=== PATIENT | female | born 1980 | race Caucasian/White ===

== ENCOUNTER 2017-02-04 17:57 | Emergency (ER) | payer SELFPAY ==
[2017-02-04 18:16] VITALS: BP 133/61
[2017-02-04] MEDS ORDERED: HYDROCODONE/ACETAMINOPHEN 5-325 MG TABLET PO ONE (18:24)
[2017-02-04] MEDS ORDERED: ONDANSETRON 4 MG TAB.RAPDIS PO ONE (18:24)
--- NOTE | 2017-02-04 18:25 | ER Document Report ---
ED Medical Screen (RME) - General Chief Complaint: Vag Bleeding, +preg <12wks Stated Complaint: POSSIBLE MISCARRIAGE Notes: This 36-year-old female patient comes emergency room complaining of 2 days of vaginal bleeding cramping with clots. She reports collapsed on Saturday 2 days ago. She is A1. She reports last Saturday one week ago while in [place] she had a positive hCG. Her last menstrual period was in November 2016. I have greeted and performed a rapid initial assessment of this patient. A comprehensive ED assessment and evaluation of the patient, analysis of test results and completion of the medical decision making process will be conducted by additional ED providers. TRAVEL OUTSIDE OF THE [place] IN LAST 30 DAYS: No - Related Data Allergies/Adverse Reactions: Penicillins Allergy (Severe, Verified 08/18/15 22:54) Throat closes, swells amoxicillin Allergy (Verified 02/04/17 18:11) Past Medical History - Past Medical History Cardiac Medical History: Denies: Hx Coronary Artery Disease, Hx Heart Attack, Hx Hypertension Pulmonary Medical History: Denies: Hx Asthma, Hx Bronchitis, Hx COPD, Hx Pneumonia Neurological Medical History: Denies: Hx Cerebrovascular Accident, Hx Seizures Renal/ Medical History: Denies: Hx Peritoneal Dialysis Musculoskeltal Medical History: Denies Hx Arthritis, Reports Hx Musculoskeletal Deformity, Reports Hx Musculoskeletal Trauma Past Surgical History: Reports: Hx Appendectomy, Hx Breast Surgery - augmentation. Denies: Hx Pacemaker - Immunizations Immunizations up to date: Yes Hx Diphtheria, Pertussis, Tetanus Vaccination: Yes Physical Exam - Vital signs Vitals: Temp Pulse Resp BP Pulse Ox 97.9 F 92 16 133/61 H 98 02/04/17 18:11 02/04/17 18:11 02/04/17 18:11 02/04/17 18:11 02/04/17 18:11 Course - Vital Signs Vital signs: Temp Pulse Resp BP Pulse Ox 97.9 F 92 16 133/61 H 98 02/04/17 18:11 02/04/17 18:11 02/04/17 18:11 02/04/17 18:11 02/04/17 18:11
[2017-02-04 19:08] LABS: ABSOLUTE BASOPHILS # (AUTO) 0.1 10^3/uL (0.0-0.2); ABSOLUTE EOSINOPHILS # (AUTO) 0.6 10^3/uL (0.0-0.6); ABSOLUTE LYMPHOCYTES (AUTO) 2.8 10^3/uL (0.5-4.7); ABSOLUTE MONOCYTES (AUTO) 0.5 10^3/uL (0.1-1.4); ABSOLUTE NEUT (AUTO) 4.7 10^3/uL (1.7-8.2); EOSINOPHILS % (AUTO) 7.3 % (0-6); HEMATOCRIT 44.3 % (36.0-47.0); HGB HCT DIFFERENCE 0.7; MEAN CORPUSCULAR HEMOGLOBIN 32.1 pg (27.0-33.4); MEAN CORPUSCULAR HGB CONC 33.9 g/dL (32.0-36.0); MEAN CORPUSCULAR VOLUME 95 fl (80-97); MONOCYTES % (AUTO) 5.3 % (3-13); RED BLOOD COUNT 4.67 10^6/uL (3.72-5.28); RED CELL DISTRIBUTION WIDTH 15.7 % (11.5-14.0); SEGMENTED NEUTROPHILS % (AUTO) 54.4 % (42-78); WHITE BLOOD COUNT 8.7 10^3/uL (4.0-10.5)
[2017-02-04 19:25] LABS: ALANINE AMINOTRANSFERASE 23 U/L (9-52); ALBUMIN 3.8 g/dL (3.5-5.0); ALKALINE PHOSPHATASE 41 U/L (38-126); ANION GAP 10 (5-19); ASPARTATE AMINO TRANSFERASE 23 U/L (14-36); BILIRUBIN,DIRECT 0.1 mg/dL (0.0-0.4); BILIRUBIN,TOTAL 0.6 mg/dL (0.2-1.3); BLOOD UREA NITROGEN 11 mg/dL (7-20); CALCIUM 9.1 mg/dL (8.4-10.2); CARBON DIOXIDE 29 mmol/L (22-30); CHLORIDE 103 mmol/L (98-107); CREATININE RESULT 0.72 mg/dL (0.52-1.25); GLUCOSE 73 mg/dL (75-110); POTASSIUM 4.6 mmol/L (3.6-5.0); SODIUM 142.1 mmol/L (137-145); TOTAL PROTEIN 6.3 g/dL (6.3-8.2)
== END 2017-02-04 20:22 | disposition left against medical advice (07) ==
LOC: ER 17:57
DX: O20.9 Hemorrhage in early pregnancy, unspecified (principal); Z88.0 Allergy status to penicillin
CPT/HCPCS: 99281; 36415; 84702; 85025; 80053; 76817; S0119

== ENCOUNTER 2017-03-23 18:36 | Emergency (ER) | payer SELFPAY ==
[2017-03-23 19:11] VITALS: BP 97/55
[2017-03-23] MEDS ORDERED: NORMAL SALINE 1000 ML 1,000 ML IV ONE (19:46)
--- NOTE | 2017-03-23 19:48 | ER Document Report ---
ED Medical Screen (RME) - General Chief Complaint: Abdominal Pain Stated Complaint: ABDOMINAL AND BACK PAIN Time Seen by Provider: 03/23/17 19:42 Mode of Arrival: Wheelchair Information source: Patient TRAVEL OUTSIDE OF THE [place] IN LAST 30 DAYS: No - HPI Patient complains to provider of: L LBP with hematuria Onset: This afternoon - pt. states she started having Low back pain with hematuria ealrier this am. No h/o kidney stone. Given toradol and zofran by EMS en route - Related Data Allergies/Adverse Reactions: Penicillins Allergy (Severe, Verified 03/23/17 19:11) Throat closes, swells amoxicillin Allergy (Verified 03/23/17 19:11) Past Medical History - Social History Chew tobacco use (# tins/day): No Frequency of alcohol use: None Drug Abuse: None - Past Medical History Cardiac Medical History: Denies: Hx Coronary Artery Disease, Hx Heart Attack, Hx Hypertension Pulmonary Medical History: Denies: Hx Asthma, Hx Bronchitis, Hx COPD, Hx Pneumonia Neurological Medical History: Denies: Hx Cerebrovascular Accident, Hx Seizures Renal/ Medical History: Denies: Hx Peritoneal Dialysis Musculoskeltal Medical History: Denies Hx Arthritis, Reports Hx Musculoskeletal Deformity, Reports Hx Musculoskeletal Trauma Past Surgical History: Reports: Hx Appendectomy, Hx Breast Surgery - augmentation. Denies: Hx Pacemaker - Immunizations Immunizations up to date: Yes Hx Diphtheria, Pertussis, Tetanus Vaccination: Yes Physical Exam - Vital signs Vitals: Temp Pulse Resp BP Pulse Ox 98.0 F 90 18 97/55 L 98 03/23/17 18:52 03/23/17 18:52 03/23/17 18:52 03/23/17 18:52 03/23/17 18:52 Course - Vital Signs Vital signs: Temp Pulse Resp BP Pulse Ox 98.0 F 90 18 97/55 L 98 03/23/17 18:52 03/23/17 18:52 03/23/17 18:52 03/23/17 18:52 03/23/17 18:52
[2017-03-23 20:16] LABS: ABSOLUTE BASOPHILS # (AUTO) 0.1 10^3/uL (0.0-0.2); ABSOLUTE EOSINOPHILS # (AUTO) 0.8 10^3/uL (0.0-0.6); ABSOLUTE LYMPHOCYTES (AUTO) 2.6 10^3/uL (0.5-4.7); ABSOLUTE MONOCYTES (AUTO) 0.6 10^3/uL (0.1-1.4); ABSOLUTE NEUT (AUTO) 7.9 10^3/uL (1.7-8.2); BASOPHILS % (AUTO) 0.8 % (0-2); EOSINOPHILS % (AUTO) 6.3 % (0-6); HEMATOCRIT 41.5 % (36.0-47.0); HEMOGLOBIN 13.7 g/dL (12.0-15.5); HGB HCT DIFFERENCE -0.4; LYMPHOCYTES % (AUTO) 21.5 % (13-45); MEAN CORPUSCULAR HEMOGLOBIN 31.3 pg (27.0-33.4); MEAN CORPUSCULAR HGB CONC 32.9 g/dL (32.0-36.0); MEAN CORPUSCULAR VOLUME 95 fl (80-97); MONOCYTES % (AUTO) 5.3 % (3-13); RED BLOOD COUNT 4.36 10^6/uL (3.72-5.28); RED CELL DISTRIBUTION WIDTH 15.2 % (11.5-14.0); SEGMENTED NEUTROPHILS % (AUTO) 66.1 % (42-78)
[2017-03-23 20:36] LABS: ALANINE AMINOTRANSFERASE 19 U/L (9-52); ALBUMIN 3.7 g/dL (3.5-5.0); ALKALINE PHOSPHATASE 45 U/L (38-126); ANION GAP 8 (5-19); ASPARTATE AMINO TRANSFERASE 19 U/L (14-36); BILIRUBIN,DIRECT 0.3 mg/dL (0.0-0.4); BILIRUBIN,TOTAL 0.4 mg/dL (0.2-1.3); BLOOD UREA NITROGEN 15 mg/dL (7-20); CALCIUM 9.1 mg/dL (8.4-10.2); CARBON DIOXIDE 30 mmol/L (22-30); CHLORIDE 104 mmol/L (98-107); CREATININE RESULT 0.87 mg/dL (0.52-1.25); GLUCOSE 89 mg/dL (75-110); SODIUM 141.9 mmol/L (137-145); TOTAL PROTEIN 6.6 g/dL (6.3-8.2)
== END 2017-03-23 20:32 | disposition left against medical advice (07) ==
LOC: ER 18:36
DX: Z53.9 Procedure and treatment not carried out, unspecified reason (principal); R10.9 Unspecified abdominal pain; M54.9 Dorsalgia, unspecified; R31.9 Hematuria, unspecified
CPT/HCPCS: 99281; 36415; 85025; 80053; J7030

== ENCOUNTER 2017-04-13 03:40 | Emergency (ER) | payer SELFPAY ==
[2017-04-13] MEDS ORDERED: NORMAL SALINE 1000 ML 1,000 ML IV ONE ×2 (04:34→06:26)
[2017-04-13] MEDS ORDERED: ONDANSETRON HCL INJ/PF 4 MG/2 ML SDV IV ONE (04:34)
[2017-04-13 04:47] LABS: ABSOLUTE BASOPHILS # (AUTO) 0.1 10^3/uL (0.0-0.2); ABSOLUTE EOSINOPHILS # (AUTO) 1.2 10^3/uL (0.0-0.6); ABSOLUTE LYMPHOCYTES (AUTO) 5.3 10^3/uL (0.5-4.7); ABSOLUTE NEUT (AUTO) 3.4 10^3/uL (1.7-8.2); BASOPHILS % (AUTO) 0.8 % (0-2); EOSINOPHILS % (AUTO) 10.8 % (0-6); HEMATOCRIT 44.9 % (36.0-47.0); HEMOGLOBIN 15.1 g/dL (12.0-15.5); HGB HCT DIFFERENCE 0.4; LYMPHOCYTES % (AUTO) 48.9 % (13-45); MEAN CORPUSCULAR HEMOGLOBIN 32.1 pg (27.0-33.4); MEAN CORPUSCULAR HGB CONC 33.7 g/dL (32.0-36.0); MEAN CORPUSCULAR VOLUME 95 fl (80-97); MONOCYTES % (AUTO) 8.7 % (3-13); RED BLOOD COUNT 4.72 10^6/uL (3.72-5.28); RED CELL DISTRIBUTION WIDTH 14.5 % (11.5-14.0); SEGMENTED NEUTROPHILS % (AUTO) 30.8 % (42-78); WHITE BLOOD COUNT 10.9 10^3/uL (4.0-10.5)
[2017-04-13 05:55] LABS: APPEARANCE,URINE SLIGHTLY-CLOUDY; BILIRUBIN,URINE NEGATIVE (NEGATIVE); GLUCOSE, URINE NEGATIVE (NEGATIVE); KETONES,URINE NEGATIVE (NEGATIVE); LEUKOCYTE ESTERASE,URINE MODERATE (NEGATIVE); NITRITE,URINE POSITIVE (NEGATIVE); PROTEIN,URINE NEGATIVE (NEGATIVE); URINE SPECIFIC GRAVITY 1.009; UROBILINOGEN,URINE NEGATIVE mg/dL (<2.0)
[2017-04-13 06:00] LABS: RBC,URINE 0-1 /HPF; WHITE BLOOD CELL CASTS, URINE 0-1 /LPF
--- NOTE | 2017-04-13 06:00 | ER Document Report ---
ED General - General Chief Complaint: Flank Pain Stated Complaint: FLANK PAIN Time Seen by Provider: 04/13/17 04:10 TRAVEL OUTSIDE OF THE [place] IN LAST 30 DAYS: No - HPI Notes: Patient comes to the office c/o b/l flank pain, dysuria, feeling of incomplete void, and lower abd pain intermittently for 2 weeks. The latest bout started up in the last 1-2 days. Pt states that she did feel feverish yesterday and had 2 episodes of n/v today. Pt states that she believes she did see a little blood once in her urine. Pt states she was told a few weeks ago that she had a kidney stone on the left side. Pt was also told that she cannot have MRI's as she has piercings to her lower back. Pt states that the pain radiates from the flank to her groin b/l. Pt has a h/o anxiety and takes xanax. Pt reports having a couple shots and drinks this evening as well. Denies any current fever , URI, sore throat, headache, cp, palp, syncope, cough, wheeze, sob, dyspnea, diarrhea/constipation, vaginal discharge/odor, or rash. Denies IV drug use. No significant PMH otherwise. Pt states that she is in a monogamous relationship with another female partner. - Related Data Allergies/Adverse Reactions: Penicillins Allergy (Severe, Verified 03/26/17 09:40) Throat closes, swells amoxicillin Allergy (Verified 03/26/17 09:40) Past Medical History - Social History Smoking Status: Current Every Day Smoker Family History: Reviewed & Not Pertinent Patient has suicidal ideation: No Patient has homicidal ideation: No - Past Medical History Cardiac Medical History: Denies: Hx Coronary Artery Disease, Hx Heart Attack, Hx Hypertension Pulmonary Medical History: Denies: Hx Asthma, Hx Bronchitis, Hx COPD, Hx Pneumonia Neurological Medical History: Denies: Hx Cerebrovascular Accident, Hx Seizures Renal/ Medical History: Denies: Hx Peritoneal Dialysis Musculoskeltal Medical History: Denies Hx Arthritis, Reports Hx Musculoskeletal Deformity, Reports Hx Musculoskeletal Trauma Past Surgical History: Reports: Hx Appendectomy, Hx Breast Surgery - augmentation. Denies: Hx Pacemaker - Immunizations Immunizations up to date: Yes Hx Diphtheria, Pertussis, Tetanus Vaccination: Yes Review of Systems - Review of Systems Notes: REVIEW OF SYSTEMS: CONSTITUTIONAL : see hpi. Denies recent illness. EENT: Denies eye, ear, throat, or mouth pain or symptoms. Denies nasal or sinus congestion or discharge. Denies throat, tongue, or mouth swelling or difficulty swallowing. CARDIOVASCULAR: Denies chest pain. Denies palpitations or racing or irregular heart beat. Denies ankle edema. RESPIRATORY: Denies cough, cold, or chest congestion. Denies shortness of breath, difficulty breathing, or wheezing. GASTROINTESTINAL: see hpi GENITOURINARY: see hpi FEMALE GENITOURINARY: Denies vaginal bleeding, heavy or abnormal periods, irregular periods. Denies vaginal discharge or odor. MUSCULOSKELETAL: Denies neck pain or stiffness. Denies joint pain or swelling. See hpi. SKIN: Denies rash, lesions or sores. NEUROLOGICAL: Denies confusion or altered mental status. Denies passing out or loss of consciousness. Denies dizziness or lightheadedness. Denies headache. Denies weakness or paralysis or loss of use of either side. Denies problems with gait or speech. Denies sensory loss, numbness, or tingling. Denies seizures. PSYCHIATRIC: see hpi ALL OTHER SYSTEMS REVIEWED AND NEGATIVE. Dictation was performed using [employer] voice recognition software Physical Exam - Vital signs Vitals: Temp Pulse Resp BP Pulse Ox 97.9 F 84 20 100/69 98 04/13/17 03:55 04/13/17 03:55 04/13/17 03:55 04/13/17 03:55 04/13/17 03:55 Notes: PHYSICAL EXAMINATION: GENERAL: Well-appearing, well-nourished. Pt was sleeping when I went into the room and would not wake up to normal voice and light touch to the arm. PCT came into the room as well and did a light sternal rub which immediately woke her up at which point she began to cry and writhe in pain from her lower abd/ flank. HEAD: Atraumatic, normocephalic. EYES: Pupils equal round and reactive to light, extraocular movements intact, sclera anicteric, conjunctiva are normal. ENT: Nares patent and without discharge. oropharynx clear without exudates. No tonsilar hypertrophy or erythema. Moist mucous membranes. No sinus tenderness. NECK: Normal range of motion, supple without lymphadenopathy. No rigidity/ meningismus. LUNGS: Breath sounds clear to auscultation bilaterally and equal. No wheezes rales or rhonchi. HEART: Regular rate and rhythm without murmurs, rubs, gallops. ABDOMEN: Soft, non-distended. No rigidity. + tenderness to the generalized abd (> lower abd b/l). Mild guarding to lower palpation. No ecchymosis, swelling, ascites, abrasion/laceration noted. + CVAT b/l. Musculoskeletal: FROM to passive/active to LE's b/l. Strength 5+/5. SLR neg b/ l. Extremities: No cyanosis, clubbing, or edema b/l. Peripheral pulses 2+. Capillary refill less than 3 seconds. NEUROLOGICAL: Cranial nerves grossly intact. Normal speech. Normal sensory, motor exams. Reflexes 2+ LE's. PSYCH: emotional, normal affect otherwise. SKIN: Warm, Dry, normal turgor, no rashes or lesions noted. Course - Re-evaluation Re-evalutation: 04/13/17 06:41 Patient is an afebrile, well-hydrated, 37yo female who presents with UTI/ Pyelonephritis based on work up today. Mild leukocytosis. Urinalysis +, UC pending. CT scan was overall unremarkable for radiologist impression. Clinically, the patient fits a pyelo dx and the rt kidney on scan appears to be larger than the left from personal view. Fluids, zofran given today. Levaquin 750mg given IM (pt severely allergic to PCN's). Vitals are stable. Pt's BP is low, but that is her normal over the course of years. Pt is self pay. We will discharge her on Cipro 500mg PO BID x7 days, phenergan, and morphine for some assistance with pain. Pt tolerated PO intake prior to discharge. Recheck with her PCM in 2-3 days for a recheck, consider consult with Nephrology as well ( info provided). Return to the ED with any worsening symptoms as reviewed. Pt in agreement. - Vital Signs Vital signs: Temp Pulse Resp BP Pulse Ox 97.9 F 84 27 H 91/64 L 98 04/13/17 03:55 04/13/17 03:55 04/13/17 06:02 04/13/17 06:02 04/13/17 06:02 - Laboratory Result Diagrams: 04/13/17 04:14 04/13/17 05:48 Laboratory results interpreted by me: 04/13/17 04/13/17 04:14 04:55 WBC 10.9 H RDW 14.5 H Seg Neutrophils % 30.8 L Lymphocytes % 48.9 H Eosinophils % 10.8 H Absolute Lymphocytes 5.3 H Absolute Eosinophils 1.2 H Urine Blood SMALL H Urine Nitrite POSITIVE H Ur Leukocyte Esterase MODERATE H Discharge - Discharge Clinical Impression: Pyelonephritis UTI (urinary tract infection) Qualifiers: Urinary tract infection type: site unspecified Hematuria presence: with hematuria Qualified Code(s): N39.0 - Urinary tract infection, site not specified Condition: Stable Disposition: HOME, SELF-CARE Instructions: Acetaminophen, Antibiotic Therapy ([facility]), Antinausea Medication ( [facility]), Ciprofloxacin ([facility]), Oral Narcotic Medication ([facility]), Pyelonephritis ([facility]) , Urinary Tract Infection ([facility]) Additional Instructions: Push fluids (i.e. water, cranberry juice) Proper hygenic technique Keep the skin clean Tylenol/ibuprofen as needed May use over the counter AZO for burning with urination Take medications as directed F/u with your PCM in 2-3 days for a recheck Consider consult with a Forensic Identification Specialist for ongoing/worsening symptoms. Return to the ED with any development of fever, worsening pain, blood in the urine, worsening flank pain, abdominal pain, n/v, Chest Pain, shortness of breath, or trouble breathing. Prescriptions: Ciprofloxacin HCl [Cipro 500 mg Tablet] 500 mg PO BID #14 tablet Morphine Sulfate [Morphine Ir 15 Mg Tablet] 15 mg PO QID PRN #10 tablet PRN Reason: Promethazine HCl [Phenergan 25 mg Tablet] 1 tab PO Q6H PRN #15 tablet PRN Reason: Referrals: LUISANA ABAD MD [ACTIVE STAFF] - Follow up as needed
[2017-04-13 06:01] LABS: BACTERIA,URINE 3+ /HPF
[2017-04-13 06:15] VITALS: BP 91/64
[2017-04-13 06:16] LABS: ALANINE AMINOTRANSFERASE 23 U/L (9-52); ALBUMIN 4.5 g/dL (3.5-5.0); ALKALINE PHOSPHATASE 39 U/L (38-126); ANION GAP 15 (5-19); ASPARTATE AMINO TRANSFERASE 21 U/L (14-36); BILIRUBIN,DIRECT 0.3 mg/dL (0.0-0.4); BILIRUBIN,TOTAL 0.6 mg/dL (0.2-1.3); BLOOD UREA NITROGEN 17 mg/dL (7-20); CALCIUM 9.2 mg/dL (8.4-10.2); CARBON DIOXIDE 22 mmol/L (22-30); CHLORIDE 102 mmol/L (98-107); CREATININE RESULT 0.94 mg/dL (0.52-1.25); GLUCOSE 86 mg/dL (75-110); LIPASE 94.4 U/L (23-300); POTASSIUM 4.1 mmol/L (3.6-5.0); SODIUM 139.3 mmol/L (137-145); TOTAL PROTEIN 7.8 g/dL (6.3-8.2)
[2017-04-13] MEDS ORDERED: LEVOFLOXACIN 750 MG TABLET PO ONE (06:21)
--- NOTE | 2017-04-13 06:33 | RADIOLOGY REPORT (SQ) ---
EXAM DESCRIPTION: CT LTD RENAL STONE PROTOCOL ON COMPLETED DATE/TIME: 04/13/2017 6:22 am REASON FOR STUDY: Flank and abdominal pain COMPARISON: None. TECHNIQUE: CT scan of the abdomen and pelvis performed without intravenous or oral contrast. Images reviewed with lung, soft tissue, and bone windows. Reconstructed coronal and sagittal MPR images revi ewed. All images stored on PACS. All CT scanners at this facility use dose modulation, iterative reconstruction, and/or weight based d osing when appropriate to reduce radiation dose to as low as reasonably achievable (ALARA). [facility]: Dose Right [facility]: CareDose [facility]: Dose Right [facility]: Teradose 4D [facility]: Smart Audiodraft RADIATION DOSE: Up-to-date CT equipment and radiation dose reduction techniques were employed. CTDIv ol: 4.8 mGy. DLP: 241 mGy-cm.mGy. LIMITATIONS: None. FINDINGS: LOWER CHEST: No significant findings. No nodules or infiltrates. Small basilar atelectasi s or scar, dependent. NON-CONTRASTED LIVER, SPLEEN, ADRENALS: Evaluation limited by lack of IV contrast. No identified sign ificant masses. PANCREAS: No masses. No peripancreatic inflammatory changes. GALLBLADDER: No identified stones by CT criteria. No inflammatory changes to suggest cholecystitis. RIGHT KIDNEY AND URETER: No suspicious masses. Assessment limited by lack of IV contrast. No signif icant calcifications. No hydronephrosis or hydroureter. LEFT KIDNEY AND URETER: No suspicious masses. Assessment limited by lack of IV contrast. No signifi cant calcifications. No hydronephrosis or hydroureter. AORTA AND RETROPERITONEUM: No aneurysm. No retroperitoneal masses or adenopathy. Atherosclerosis. BOWEL AND PERITONEAL CAVITY: No obvious masses or inflammatory changes. No free fluid. APPENDIX: Normal. PELVIS, BLADDER, AND ABDOMINAL WALL:No abnormal masses. No free fluid. Bladder normal. BONES: No significant findings. OTHER: No other significant finding. IMPRESSION: NO SIGNIFICANT OR ACUTE PROCESS IN THE ABDOMEN OR PELVIS. TECHNICAL DOCUMENTATION: JOB ID: [id number] Quality ID # [id number]: Final reports with documentation of one or more dose reduction techniques (e.g., Au tomated exposure control, adjustment of the mA and/or kV according to patient size, use of iterative reconstruction technique) 2010 [employer]- All Rights Reserved
== END 2017-04-13 07:20 | disposition home or self-care (01) ==
LOC: ER 03:40
DX: N12 Tubulo-interstitial nephritis, not specified as acute or chronic (principal); N39.0 Urinary tract infection, site not specified; R10.9 Unspecified abdominal pain; R30.0 Dysuria; R10.30 Lower abdominal pain, unspecified; F41.9 Anxiety disorder, unspecified; Z79.899 Other long term (current) drug therapy; F17.200 Nicotine dependence, unspecified, uncomplicated
CPT/HCPCS: 99284; 96361; 96374; 36415; 87086; 83690; 85025; 81025; 87088; 80053; 81001; 87186; 76380; J2405; J7030

== ENCOUNTER 2017-05-31 04:03 | Emergency (ER) | payer SELFPAY ==
--- NOTE | 2017-05-31 05:18 | ER Document Report ---
HPI - HPI Pain Level: 3 Notes: Patient is a 37-year-old female who presents the ED complaining of abnormal uterine bleeding since April 20. Patient states that she has cramping intermittently as well as occasional low back pain. Patient states that she has a history of urinary infections, kidney infections, and was diagnosed with abnormal uterine bleeding in September 2016. Patient states that since April 20 she has had 2 normal periods and in the last few days she started having light spotting. Patient states that over the last month she has been sexually active with both a male and female partner, but currently it is a female partner. Patient states that right now she has left suprapubic pain/cramping with occasional light spotting. Patient states that she is still eating and drinking without any difficulties. She denies any urinary symptoms. Patient denies any other vaginal discharge or foul odor. Denies any headache, fever, URI, sore throat, chest pain, palpitations, syncope, cough, shortness of breath , wheeze, dyspnea, nausea/vomiting/diarrhea, urinary retention, dysuria, hematuria, loss of control of bowel or bladder, numbness/tingling, saddle anesthesia, muscle paralysis/weakness, or rash. - ROS Notes: REVIEW OF SYSTEMS: CONSTITUTIONAL : Denies fever, chills, or sweats. Denies recent illness. EENT: Denies eye, ear, throat, or mouth pain or symptoms. Denies nasal or sinus congestion or discharge. Denies throat, tongue, or mouth swelling or difficulty swallowing. CARDIOVASCULAR: Denies chest pain. Denies palpitations or racing or irregular heart beat. Denies ankle edema. RESPIRATORY: Denies cough, cold, or chest congestion. Denies shortness of breath, difficulty breathing, or wheezing. GASTROINTESTINAL: see hpi GENITOURINARY: Denies difficulty urinating, painful urination, burning, frequency, blood in urine, or discharge. FEMALE GENITOURINARY: see hpi MUSCULOSKELETAL: Denies back or neck pain or stiffness. Denies joint pain or swelling. SKIN: Denies rash, lesions or sores. NEUROLOGICAL: Denies confusion or altered mental status. Denies passing out or loss of consciousness. Denies dizziness or lightheadedness. Denies headache. Denies weakness or paralysis or loss of use of either side. Denies problems with gait or speech. Denies sensory loss, numbness, or tingling. ALL OTHER SYSTEMS REVIEWED AND NEGATIVE. Dictation was performed using [email or web address] voice recognition software - REPRODUCTIVE Reproductive: DENIES: : - DERM Skin Color: Normal Past Medical History - Social History Smoking Status: Current Every Day Smoker Frequency of alcohol use: Rare Drug Abuse: None Family History: Reviewed & Not Pertinent Patient has suicidal ideation: No Patient has homicidal ideation: No - Past Medical History Cardiac Medical History: Denies: Hx Coronary Artery Disease, Hx Heart Attack, Hx Hypertension Pulmonary Medical History: Denies: Hx Asthma, Hx Bronchitis, Hx COPD, Hx Pneumonia Neurological Medical History: Denies: Hx Cerebrovascular Accident, Hx Seizures Renal/ Medical History: Denies: Hx Peritoneal Dialysis Musculoskeltal Medical History: Denies Hx Arthritis, Reports Hx Musculoskeletal Deformity, Reports Hx Musculoskeletal Trauma Past Surgical History: Reports: Hx Appendectomy, Hx Breast Surgery - augmentation. Denies: Hx Pacemaker - Immunizations Immunizations up to date: Yes Hx Diphtheria, Pertussis, Tetanus Vaccination: Yes Vertical Provider Document - CONSTITUTIONAL Agree With Documented VS: Yes Notes: PHYSICAL EXAMINATION: GENERAL: Well-appearing, well-nourished and in no acute distress. NECK: Normal range of motion, supple without lymphadenopathy LUNGS: Breath sounds clear to auscultation bilaterally and equal. No wheezes rales or rhonchi. HEART: Regular rate and rhythm without murmurs ABDOMEN: Soft, nondistended abdomen. No guarding, no rebound. No masses appreciated. Normal bowel sounds present. CVA tenderness negative bilaterally. + mild tenderness to the left adnexal area/LLQ. Female : No inguinal adenopathy. External genitalia without erythema, lesions , or masses. Vaginal mucosa pink. Cervix parous, pink, and with a white discharge. No blood discharge noted. Uterus is smooth. + left mild adnexal tenderness. Musculoskeletal: LE's b/l: FROM to passive/active. Strength 5+/5. SLR neg. Extremities: No cyanosis/clubbing/edema b/l. Peripheral pulses 2+. Capillary refill less than 3 seconds. NEUROLOGICAL: Normal speech, normal gait. Normal sensory, motor exams PSYCH: Normal mood, normal affect. SKIN: Warm, Dry, normal turgor, no rashes or lesions noted. - INFECTION CONTROL TRAVEL OUTSIDE OF THE [place] IN LAST 30 DAYS: No - RESPIRATORY O2 Sat by Pulse Oximetry: 98 Course - Re-evaluation Re-evalutation: 05/31/17 06:40 Patient is an afebrile, well-hydrated, 37-year-old female with trichomonas infection and BV on wet mount. GC/Chlam tests are pending. UA most likely contaminate with UC pending. Urine HCG negative. TV US is unremarkable for any acute pathology. Vitals are stable. PE otherwise unremarkable this time. I will send her home with a Rx for Metronidazole which will cover both BV and Trich. Reviewed severe PCN allergy with Dr. Diez. Routinely, we would cover with zithromax and rocephin, but pt has the severe PCN allergy. In lieu of that , we will send her home with Doxy 100mg PO BID x7 days and wait for the GC/ chlam results. If they come back positive then we will track her down to have her get treated. Pt is to call the ED in 4 hours for her results which she is agreeable to. Risks/benefits understood. Abstain from sexual contact until treatment completed. Have partner(s) treated as well. Conservative measures otherwise for symptoms. Contact the [facility] to set up a SCHOOL ADJUSTMENT COUNSELOR appointment for ongoing management, review of possible abnormal uterine bleeding. Get eval' d at the health department this week. Recheck with PCM in 2-3 days. Return to the ED with any worsening/concerning symptoms otherwise as reviewed in discharge. Patient is in agreement. Low suspicion for any acute appendicitis, bowel obstruction, acute cholecystitis, perforated diverticulitis, incarcerated hernia, pancreatitis, pelvic inflammatory disease, perforated ulcer, ectopic , tubo-ovarian abscess. Patient is aware that condition change from initial presentation and she needs to monitor symptoms closely and seek medical attention if any acute changes in symptoms. - Vital Signs Vital signs: Temp Pulse Resp BP Pulse Ox 97.8 F 71 18 119/90 H 98 05/31/17 04:14 05/31/17 04:14 05/31/17 04:14 05/31/17 04:14 05/31/17 04:14 Procedures - Pelvic Exam Pelvic exam Time completed: 05:35 Cultures obtained: Yes Wet prep obtained: Yes Herpes culture obtained: - Pressure Bimanual exam performed: Yes - no CMT Witnessed by: female PCT Notes: 05/31/17 05:19 see exam Discharge - Discharge Clinical Impression: Trichomonas infection, Bacterial vaginosis Condition: Stable Disposition: HOME, SELF-CARE Instructions: Metronidazole ([facility]), Trichomonas Infection ([facility]), Vaginosis, Bacterial ([facility]), Doxycycline ([facility]) Additional Instructions: Maintain fluids Your GC/chlamydia test is pending and he will be notified if it is positive, however, you are already treated prophylactically in the ED today. Take medication as directed for full dose Have sexual partners treated Tylenol/ibuprofen as needed Schedule an appointment with the women's clinic to set up a SCHOOL ADJUSTMENT COUNSELOR consult for further evaluation Recheck with PCM in 2-3 days Return to the ED with any worsening symptoms and/or development of fever, headache, chest pain, palpitations, syncope, shortness of breath, trouble breathing, abdominal pain, n/v/d, blood in stool/urine, or other worsening symptoms that are concerning to you. Prescriptions: Doxycycline Hyclate 100 mg PO BID #14 capsule Metronidazole [Flagyl 500 mg Tablet] 500 mg PO BID #14 tablet Forms: Elevated Blood Pressure, Smoking Cessation Education [facility]errals[facility] - Follow up in 3-5 days [facility] [NO LOCAL MD] - Follow up in 3-5 days
[2017-05-31 05:42] LABS: APPEARANCE,URINE CLOUDY; BILIRUBIN,URINE NEGATIVE (NEGATIVE); GLUCOSE, URINE NEGATIVE (NEGATIVE); KETONES,URINE TRACE mg/dL (NEGATIVE); LEUKOCYTE ESTERASE,URINE TRACE (NEGATIVE); NITRITE,URINE NEGATIVE (NEGATIVE); PROTEIN,URINE 30 mg/dL (NEGATIVE); URINE SPECIFIC GRAVITY 1.036; UROBILINOGEN,URINE NEGATIVE mg/dL (<2.0)
--- NOTE | 2017-05-31 06:33 | RADIOLOGY REPORT (SQ) ---
EXAM DESCRIPTION: U/S NON OB PEL TV W/DOPPLER COMPLETED DATE/TIME: 05/31/2017 6:23 am REASON FOR STUDY: left adnexal pain/tenderness COMPARISON: None. TECHNIQUE: Dynamic and static grayscale images acquired of the pelvis via transvaginal approach and recorded on PACS. Additional selected color Doppler and spectral images recorded. LIMITATIONS: None. FINDINGS: UTERUS: Contour normal. No mass. ENDOMETRIAL STRIPE: No focal or generalized thickening. No masses. CERVIX: No nabothian cysts. RIGHT OVARY: No abnormal masses. RIGHT OVARY DOPPLER: Normal arterial vascular flow without evidence for torsion. LEFT OVARY: No abnormal masses. LEFT OVARY DOPPLER: Normal arterial vascular flow without evidence for torsion. FREE FLUID: None noted. OTHER: No other significant finding. MEASUREMENTS: UTERUS: 10 x 5.6 x 4.9 cm. ENDOMETRIAL STRIPE: 0.5 cm thick. RIGHT OVARY: 3.8 cm. LEFT OVARY: 3.6 cm. IMPRESSION: NORMAL TRANSVAGINAL PELVIC ULTRASOUND. TECHNICAL DOCUMENTATION: JOB ID: [id number] [employer]- All Rights Reserved
[2017-05-31 06:53] VITALS: BP 126/81
[2017-05-31 07:24] LABS: CHLAM PCR NOT DETECTED (NOT DETECT)
== END 2017-05-31 06:55 | disposition home or self-care (01) ==
LOC: ER 04:03
DX: A59.9 Trichomoniasis, unspecified (principal); N76.0 Acute vaginitis; B96.89 Other specified bacterial agents as the cause of diseases classified elsewhere; M54.5 Low back pain; F17.200 Nicotine dependence, unspecified, uncomplicated
CPT/HCPCS: 76830; 81001; 81025; 87086; 87210; 87491; 87591; 93976; 99284

== ENCOUNTER 2017-06-04 16:02 | Emergency (ER) | payer SELFPAY ==
[2017-06-04] MEDS ORDERED: BUPIVACAINE HCL 0.5 % INJ/PF 30 ML SDV INJ ONE (16:47)
[2017-06-04] MEDS ORDERED: OXYCODONE-ACETAMINOPHEN 5-325 MG TABLET PO ONE (17:24)
--- NOTE | 2017-06-04 17:29 | ER Document Report ---
HPI - HPI Patient complains to provider of: toothache Onset: This morning Onset/Duration: Sudden Quality of pain: Throbbing Severity: Severe Pain Level: 5 Context: Patient states she was eating today and bit down on something and broke her right upper tooth. Complains of pain. Associated Symptoms: None Exacerbated by: Food Relieved by: Denies Similar symptoms previously: Yes Recently seen / treated by doctor: No - ROS ROS below otherwise negative: Yes Systems Reviewed and Negative: Yes All other systems reviewed and negative - CONSTITUTIONAL Constitutional: DENIES: Fever - EENT EENT: DENIES: Congestion - NEURO Neurology: DENIES: Headache - CARDIOVASCULAR Cardiovascular: DENIES: Chest pain - RESPIRATORY Respiratory: DENIES: Trouble Breathing - GASTROINTESTINAL Gastrointestinal: DENIES: Abdominal Pain - REPRODUCTIVE Reproductive: DENIES: : - MUSCULOSKELETAL Musculoskeletal: DENIES: Extremity pain - DERM Skin Color: Normal Past Medical History - General Information source: Patient - Social History Smoking Status: Current Every Day Smoker Cigarette use (# per day): Yes Frequency of alcohol use: None Drug Abuse: None Lives with: Family Family History: Reviewed & Not Pertinent Patient has suicidal ideation: No Patient has homicidal ideation: No Renal/ Medical History: Reports: Hx Pelvic Inflammatory Disease Musculoskeltal Medical History: Reports Hx Musculoskeletal Deformity, Reports Hx Musculoskeletal Trauma Past Surgical History: Reports: Hx Appendectomy, Hx Breast Surgery - augmentation - Immunizations Immunizations up to date: Yes Hx Diphtheria, Pertussis, Tetanus Vaccination: Yes Vertical Provider Document - CONSTITUTIONAL Agree With Documented VS: Yes Exam Limitations: No Limitations General Appearance: WD/WN, Mild Distress - INFECTION CONTROL TRAVEL OUTSIDE OF THE [place] IN LAST 30 DAYS: No - HEENT HEENT: Atraumatic, Normal ENT Exam, Normocephalic Mouth Diagram: 1 - decay and broken tooth - RESPIRATORY Respiratory: Breath Sounds Normal, No Respiratory Distress O2 Sat by Pulse Oximetry: 100 - CARDIOVASCULAR Cardiovascular: Regular Rate, Regular Rhythm - MUSCULOSKELETAL/EXTREMETIES Musculoskeletal/Extremeties: MAEW - NEURO Level of Consciousness: Awake, Alert, Appropriate - DERM Integumentary: Warm, Dry Course - Re-evaluation Re-evalutation: 06/04/17 17:26 Patient decided she did not want local anesthesia to right upper molar. Patient prefers oral medications at this time. - Vital Signs Vital signs: Temp Pulse Resp BP Pulse Ox 98.2 F 92 16 92/52 L 100 06/04/17 16:16 06/04/17 16:16 06/04/17 16:16 06/04/17 16:16 06/04/17 16:16 Discharge - Discharge Clinical Impression: Pain due to dental caries Condition: Good Disposition: HOME, SELF-CARE Instructions: Toothache ([facility]), Oral Narcotic Medication ([facility]), Clindamycin ([facility] ) Additional Instructions: [id number] Motrin as needed for pain 8 hours meds As prescribed Must follow-up with your dentist for further evaluation of dental problems Return as needed Prescriptions: Clindamycin HCl 150 mg PO QID #28 capsule Oxycodone HCl/Acetaminophen [Percocet 5-325 mg Tablet] 1 - 2 tab PO ASDIR PRN # 10 tablet PRN Reason: Forms: Return to Work
[2017-06-04 18:02] VITALS: BP 90/53
== END 2017-06-04 17:51 | disposition home or self-care (01) ==
LOC: ER 16:02
DX: K02.9 Dental caries, unspecified (principal); F17.210 Nicotine dependence, cigarettes, uncomplicated
CPT/HCPCS: 99282